=== PATIENT | female | born 1960 | race Caucasian/White ===

== ENCOUNTER 2019-02-16 15:21 | Outpatient (CLI) | payer BC ==
--- NOTE | 2019-02-16 16:04 | MMO ---
Bilateral MAMMO Bilat Screen [facility]. CLINICAL HISTORY: Patient is 59 years old and is seen for screening. VIEWS: The views performed were: bilateral craniocaudal with tomosynthesis; bilateral mediolateral oblique with tomosynthesis; and bilateral exaggerated craniocaudal. FILMS COMPARED: The present examination has been compared to prior imaging studies performed at [facility] on 02/26/2015 and 12/21/2016. MAMMOGRAM FINDINGS: The breasts are heterogeneously dense, which could obscure a lesion on mammography. There are no suspicious masses, suspicious calcifications, or new areas of architectural distortion. IMPRESSION: THERE IS NO MAMMOGRAPHIC EVIDENCE OF MALIGNANCY. A ROUTINE FOLLOW-UP MAMMOGRAM IN 1 YEAR IS RECOMMENDED. THE RESULTS OF THIS EXAM WERE SENT TO THE PATIENT. ACR BI-RADS Category 1 - Negative MAMMOGRAPHY NOTE: 1. A negative mammogram report should not delay a biopsy if a dominant of clinically suspicious mass is present. 2. Approximately 10% to 15% of breast cancers are not detected by mammography. 3. Adenosis and dense breasts may obscure an underlying neoplasm. Reported by: STANLEY ORTIZ MD Electonically Signed: [id number]
--- NOTE | 2019-02-16 17:12 | BD ---
Exam: DEXA Bone Density 02/16/19 INDICATION: Osteoporosis screening. COMPARISON: None. FINDINGS: Lumbar Spine: BMD (g/cm2) T-SCORE Z-SCORE L1 0.744 -2.2 -0.9 L2 0.798 -2.1 -0.6 L3 0.884 -2.2 -0.7 L4 0.858 -1.8 -0.3 L1-L4 0.813 -2.1 -0.7 Left Femoral Neck: 0.742 -1.0 0.4 Total Femur: 0.826 -0.9 0.1 Impression: 1. Based on WHO criteria, the patient's bone mineral density is considered osteopenic. The patie nt is at moderate risk for fracture. The FRAX WHO fracture risk assessment tool estimates ten year fracture risk for this patient for vishal r osteoporotic fracture of 6.5% and for hip fracture is 0.4%. POS: BH
== END 2019-02-16 15:22 | disposition home or self-care (01) ==
LOC: BICMAMMO 15:21
PROVIDERS: ATTEND Obstetrics & Gynecology
DX: Z12.31 Encounter for screening mammogram for malignant neoplasm of breast (principal); Z13.820 Encounter for screening for osteoporosis; M85.89 Other specified disorders of bone density and structure, multiple sites
CPT/HCPCS: 77063; 77067; 77080